=== PATIENT | female | born 1945 | race African-American/Black ===

== ENCOUNTER 2018-07-14 10:55 | Day surgery (SDC) | payer MEDICARE, MEDICAID ==
[~2018-07-14] VITALS: Ht 162.6 cm; Wt 121.4 kg
[2018-07-14 11:48] LABS: ANION GAP 12.3 mmol/L (8-16); CALCIUM 9.5 mg/dL (8.5-10.1); CARBON DIOXIDE 28.7 mmol/L (21.0-32.0)
[2018-07-14 11:54] LABS: HEMATOCRIT 41.7 % (36.0-48.0); HEMOGLOBIN 13.8 g/dL (12-16); MCH 32.1 pg (26.0-34.0); MCHC 33.1 g/dL (31.0-37.0); MEAN PLATELET VOLUME 10.1 fL (7.4-10.4); RBC 4.3 10x6/uL (4.00-5.40); RDW 12.6 % (11.5-14.5); WBC 6.7 10x3/uL (4.8-10.8)
[2018-07-14] MEDS ORDERED: ALDACTONE25 MG PO (12:12)
[2018-07-14] MEDS ORDERED: DONEPEZIL HCL5 MG PO (12:13)
[2018-07-14] MEDS ORDERED: LIPITOR40 MG PO (12:13)
[2018-07-14] MEDS ORDERED: DEXILANT60 MG PO (12:14)
[2018-07-14] MEDS ORDERED: GLUCOPHAGE500 MG PO (12:14)
[2018-07-14] MEDS ORDERED: NEURONTIN600 MG PO (12:15)
[2018-07-14] MEDS ORDERED: ALBUTEROL SULF8.5 GM (12:16)
[2018-07-14] MEDS ORDERED: FLUTICASONE PRO16 GM (12:16)
[2018-07-14] MEDS ORDERED: TRUSOPT 2 % OPT10 ML EACH EYE (12:16)
[2018-07-14] MEDS ORDERED: ULTRAM50 MG (12:17)
[2018-07-14] MEDS ORDERED: LEVOTHYROXINE50 MCG PO (12:18)
[2018-07-14] MEDS ORDERED: MUCINEX600 MG PO (12:18)
[2018-07-14] MEDS ORDERED: NIFEDIPINE 30 MG (12:20)
[2018-07-14 12:31] VITALS: BP 141/55; Ht 162.6 cm; Wt 121.4 kg
--- NOTE | 2018-07-18 10:17 | OP ---
PATIENT NAME: AYANNA ACEVES MEDICAL RECORD: [id number] :45 LOCATION:[facility] ADMISSION DATE: SURGEON: CAMILLE MOY MD DATE OF OPERATION: 07/14/2018 PROCEDURE: Colonoscopy with polypectomy. REFERRING PHYSICIAN: Dr. Nikki Holbrook. INDICATIONS: Ms. Aceves is a delightful 72-year-old woman with a history of colon polyps and diverticulosis coli. Her last colonoscopy was 05/02/2012 (completed to the distal ascending colon secondary to redundancy of the colon), yytd-ds-yoslwfph pandiverticulosis coli and 2 small polyps that were cold biopsied (polyps were hyperplastic in nature). She presents for outpatient surveillance colonoscopy. PREMEDICATIONS: Total IV anesthesia (BMI of 45). INSTRUMENT: Olympus video colonoscope, pediatric. PROCEDURE AND FINDINGS: After receiving informed consent, Ms. Aceves was placed in left lateral decubitus position and sedated per anesthesia. After achieving adequate level of sedation, digital rectal exam was performed that showed no external hemorrhoidal tags, fissures, or fistulas. Normal sphincter tone, no palpable rectal masses. The colonoscope was introduced per rectally and advanced with some difficulty to the cecum. She had a long and redundant colon. The cecum, IC valve, and appendiceal orifice were identified. There was a fair amount of thick liquid stool in the cecum and ascending colon. Multiple lavages were performed. As the colonoscope was withdrawn, careful inspection was made of the ziegler of the colon. Overall mucosa had normal vascular and fold pattern. Diverticula were seen scattered throughout the colon including the ascending, transverse, descending, and sigmoid colon, most numerous in the sigmoid colon. In the sigmoid colon was a 0.5 cm sessile polyp removed with hot biopsy forcep technique. Retroflexion in the rectum showed minimal internal hemorrhoids. A fair prep was present. Ms. Aceves tolerated the procedure well, no immediate complications. ASSESSMENT: 1. Small sigmoid polyp status post polypectomy. 2. Gaja-ud-kgtbrspq pandiverticulosis coli. 3. Mild internal hemorrhoids. RECOMMENDATIONS: 1. Follow up histopathology. 2. Avoid aspirin, nonsteroidal anti-inflammatory drugs, and FRANCO-2 inhibitors for 14 days post polypectomy. 3. High fiber diet. 4. Surveillance colonoscopy in 5 years. TRANSINT:[id number] Voice Confirmation ID: [id number] DOCUMENT ID: [id number] OPERATIVE REPORT [id number] AYANNA ACEVES TERRI MD at 1017 CC: NIKKI HOLBROOK MD [id number] DICTATION DATE: 07/14/18 1326 SLASHER TENDER: 07/14/18 1356 [facility] [place] 07/14/18 [place] [id number] [place] [id number]
== END 2018-07-14 14:20 | disposition home or self-care (01) ==
LOC: D.OPS 10:55
PROVIDERS: Anesthesiology; ATTEND Internal Medicine Gastroenterology
DX: D12.5 Benign neoplasm of sigmoid colon (principal); K57.30 Diverticulosis of large intestine without perforation or abscess without bleeding; K64.8 Other hemorrhoids; Z86.010 Personal history of colon polyps; Z01.812 Encounter for preprocedural laboratory examination

== ENCOUNTER 2019-08-02 14:21 | Inpatient (IN) | payer MEDICARE, MEDICAID ==
[~2019-08-02] VITALS: Ht 162.6 cm; Wt 122.7 kg
[~2019-08-02 14:21] MED LIST: ALBUTEROL SULF8.5 GM; ALDACTONE25 MG PO; DEXILANT60 MG PO; DONEPEZIL HCL5 MG PO; FLUTICASONE PRO16 GM; GLUCOPHAGE500 MG PO; LEVOTHYROXINE50 MCG PO; LIPITOR40 MG PO; MUCINEX600 MG PO; NEURONTIN600 MG PO; NIFEDIPINE 30 MG; TRUSOPT 2 % OPT10 ML EACH EYE; ULTRAM50 MG
[2019-08-02] MEDS ORDERED: ASPIRIN EC81 M1 PO (15:01)
[2019-08-02] MEDS ORDERED: LINZESS72 MCG (15:01)
[2019-08-02] MEDS ORDERED: PEPCID40 MG PO (15:01)
[2019-08-02] MEDS ORDERED: CENTRUM SILVER1 EAC3 (15:02)
[2019-08-02] MEDS ORDERED: FISH OIL 1,0001 CA1 (15:02)
[2019-08-02 15:20] LABS: BILIRUBIN NEGATIVE (NEGATIVE); GLUCOSE NEGATIVE (NEGATIVE); KETONE NEGATIVE (NEGATIVE); NITRITE NEGATIVE (NEGATIVE); UROBILINOGEN NORMAL (NORMAL)
[2019-08-02 15:26] LABS: UDS - AMPHET NEGATIVE QUAL (NEGATIVE); UDS - BARB NEGATIVE QUAL (NEGATIVE); UDS - BENZO NEGATIVE QUAL (NEGATIVE); UDS - COCAINE NEGATIVE QUAL (NEGATIVE); UDS - OPIATE POSITIVE QUAL (NEGATIVE); UDS - PCP NEGATIVE QUAL (NEGATIVE); UDS - THC NEGATIVE QUAL (NEGATIVE)
[2019-08-02 16:02] LABS: BASOPHILS 0.4 % (0-2); EOSINOPHILS 0.8 % (0-7); HEMATOCRIT 41.8 % (36.0-48.0); HEMOGLOBIN 13.2 g/dL (12-16); IMMATURE GRANULOCYTES 0.1 % (0-5); LYMPHOCYTES 39.2 % (15-50); MCH 31.8 pg (26.0-34.0); MCHC 31.6 g/dL (31.0-37.0); MCV 100.7 fL (80.0-100.0); MEAN PLATELET VOLUME 9.4 fL (7.4-10.4); MONOCYTES 12.5 % (2-11); PLATELET COUNT 385 10x3/uL (130-400); RBC 4.15 10x6/uL (4.00-5.40); RDW 12.8 % (11.5-14.5); WBC 7.3 10x3/uL (4.8-10.8)
[2019-08-02 16:10] LABS: CALC OSMOLALITY 276 mosm/kg (275-300); CALCIUM 9.2 mg/dL (8.5-10.1); CARBON DIOXIDE 28.6 mmol/L (21.0-32.0); CHLORIDE - SERUM 102 mmol/L (98-107); GLUCOSE 91 mg/dL (74-106); POTASSIUM - SERUM 4.1 mmol/L (3.5-5.1); SODIUM 139 mmol/L (136-145); UREA NITROGEN 10 mg/dL (7-18); eGFR NON AFRICAN AMERICAN 58 mL/min (90-120)
[2019-08-02 16:24] LABS: ACETAMINOPHEN 0.1 ug/mL (10.0-30.0); ALBUMIN 3.6 g/dL (3.4-5.0); ALKALINE PHOSPHATASE 97 U/L (30-120); ALT (SGPT) 29 U/L (10-68); CKMB 1.4 U/L (0.0-3.6); CREATINE KINASE 175 UL (21-215); MAGNESIUM - SERUM 1.8 mg/dL (1.8-2.4); PROTEIN - SERUM 7.9 g/dL (6.4-8.2); THYROID STIMULATING HORMONE 1.32 uIU/mL (0.36-3.74)
[2019-08-02 16:25] LABS: TROPONIN-I < 0.017 ng/mL (0.000-0.060)
--- NOTE | 2019-08-02 19:00 | NUR ---
REPORT TO TESHA AGOSTO
[2019-08-02 20:00] VITALS: BP 172/70
[2019-08-02] MEDS ORDERED: LINZESS72 MCG PO (23:39)
--- NOTE | 2019-08-03 02:46 | NUR ---
I have reviewed this patient and I concur with the Shift Assessment completed by the Licensed Practical Nurse today this shift.
[2019-08-03 03:15] VITALS: Ht 162.6 cm; Wt 122.7 kg
[2019-08-03 05:32] LABS: BASOPHILS 0.5 % (0-2); EOSINOPHILS 0.2 % (0-7); HEMOGLOBIN 12.8 g/dL (12-16); IMMATURE GRANULOCYTES 0.2 % (0-5); LYMPHOCYTES 20.9 % (15-50); MCH 31.2 pg (26.0-34.0); MCHC 31.2 g/dL (31.0-37.0); MEAN PLATELET VOLUME 9.5 fL (7.4-10.4); MONOCYTES 11.2 % (2-11); PLATELET COUNT 396 10x3/uL (130-400); RDW 12.7 % (11.5-14.5); WBC 5.8 10x3/uL (4.8-10.8)
[2019-08-03 06:32] LABS: ALBUMIN 3.4 g/dL (3.4-5.0); ANION GAP 14.5 mmol/L (8-16); BILIRUBIN - TOTAL 0.49 mg/dL (0.2-1.3); CALCIUM 9.1 mg/dL (8.5-10.1); CARBON DIOXIDE 27.7 mmol/L (21.0-32.0); CREATININE - SERUM 0.9 mg/dL (0.6-1.3); MAGNESIUM - SERUM 1.9 mg/dL (1.8-2.4); PHOSPHOROUS 3.8 mg/dL (2.5-4.9); POTASSIUM - SERUM 4.2 mmol/L (3.5-5.1); PROTEIN - SERUM 7.1 g/dL (6.4-8.2)
--- NOTE | 2019-08-03 07:48 | NUR ---
ASSESSMENT DONE. DENIES NEEDS
[2019-08-03 08:27] VITALS: BP 136/63
[2019-08-03 11:52] VITALS: BP 148/91
--- NOTE | 2019-08-03 16:04 | MORECARE ---
CASE MANAGEMENT DISCHARGE SUMMARY PATIENT: AYANNA ALEX UNIT: [id number] ADM DATE: 08/02/19 AGE: 73 : 45 SEX: F ROOM/BED: D.2121 AUTHOR: PARIS MARINO PHYSICIAN: REFERRING PHYSICIAN: WILL BARRERA MD DATE OF SERVICE: 08/03/19 Discharge Plan Patient Name: [facility]YANNA ALEX [facility] [facility] 1945 Planned Disposition: Psych facility Anticipated Discharge Date: 08/03/19 Discharge Date: Expected LOS: 1 Initial Reviewer: [email or web address] Initial Review Date: 08/03/2019 Generated: 08/03/19 5:04 pm Patient Name: AYANNA ALEX Page 15262 at 1604 All edits/amendments must be made on the electronic document DICTATION DATE: 08/03/191603 MONTESSORI TEACHER: RAMESH 08/03/191603 RPT#: [id number] DC DATE: STATUS: ADM IN [facility] [address] [place] [address] END OF REPORT
--- NOTE | 2019-08-03 16:11 | MORECARE ---
CASE MANAGEMENT DISCHARGE SUMMARY PATIENT: AYANNA ALEX UNIT: [id number] ADM DATE: 08/02/19 AGE: 73 : 45 SEX: F ROOM/BED: D.2121 AUTHOR: PARIS MARINO PHYSICIAN: REFERRING PHYSICIAN: WILL BARRERA MD DATE OF SERVICE: 08/03/19 Discharge Plan Patient Name: [facility]YANNA ALEX [facility] : 1945 Planned Disposition: Psych facility Anticipated Discharge Date: 08/03/19 Discharge Date: Expected LOS: 1 Initial Reviewer: [email or web address] Initial Review Date: 08/03/2019 Generated: 08/03/19 5:11 pm Comments DCP- Discharge Planning Updated by [email or web address]: Elisabeth Bone on 08/03/19 3:[address] Patient Name: AYANNA ALEX Admission Status: ER Accout number: [id number] Admission Date: 08-02-2019 : 1945 Admission Diagnosis:VASCULAR DEMENTIA WITHOUT BEHAVIORAL DISTURBANCE Attending: WILL BARRERA Current LOS: 1 Anticipated DC Date: 08-03-2019 Planned Disposition: Psych facility Primary Insurance: [facility] MEDICARE SOLUTIONS Discharge Planning Comments: CM called daughter to discuss discharge planning/needs. She states her mother lives alone. States we have recently set up home health through [facility]. States they noticed her blood pressure was high and sent her to the hospital. States her mother has become increasingly confused and thinks her daughter is trying to kill her. States she agrees with [facility] discharge disposition. States they will be thinking of possible long-term placement soon. Discharge to [facility], daughter is aware. Account Collector: Elisabeth Bone DCPIA - Discharge Planning Initial Assessment Updated by [email or web address]: Elisabeth Bone on 08/03/19 4:04 pm * Is the patient Alert and Oriented? No * PCP Dr. Esperanza Holbrook * Pharmacy [facility] in [place] * Preadmission Environment Home Alone * ADLs Partial Dependent * Partial ADLs (Assistance needed) Ambulation * Equipment Glucometer Shower Chair Walker * List name and contact numbers for known caregivers / representatives who currently or will assist patient after discharge: Edith Hawthorne - [facility] [place] 2[place] - [phone] * Verbal permission to speak to the caregivers and representatives has been obtained from the patient. Yes * Community resources currently utilized Home Health * Please name any agencies selected above. [facility] * Additional services required to return to the preadmission environment? Yes * Can the patient safely return to the preadmission environment? No * Has this patient been hospitalized within the prior 30 days at any hospital? No Last DP export: 08/03/19 3:04 pm Patient Name: AYANNA ALEX Page 22203 at 1611 All edits/amendments must be made on the electronic document DICTATION DATE: 08/03/191610 TOUR PRODUCTION SUPERVISOR: RAMESH 08/03/191610 RPT#: [id number] DC DATE: STATUS: ADM IN [facility] [address] [place] [address] END OF REPORT
--- NOTE | 2019-08-03 16:59 | NUR ---
REPORT CALLED TO YAQUELIN IN [facility]
--- NOTE | 2019-08-03 17:44 | NUR ---
DC TO [facility] PER WC
--- NOTE | 2019-08-05 19:34 | MORECARE ---
CASE MANAGEMENT DISCHARGE SUMMARY PATIENT: AYANNA ALEX UNIT: [id number] ADM DATE: 08/02/19 AGE: 73 : 45 SEX: F ROOM/BED: D.2121 AUTHOR: PARIS MARINO PHYSICIAN: REFERRING PHYSICIAN: WILL BARRERA MD DATE OF SERVICE: 08/05/19 Discharge Plan Patient Name: AYANNA ALEX Facility: [facility]:[place] : 1945 Planned Disposition: Psych facility Anticipated Discharge Date: 08/03/19 Discharge Date: 08/03/2019 Expected LOS: 1 Initial Reviewer: [email or web address] Initial Review Date: 08/03/2019 Generated: 08/05/19 8:33 pm Comments DCP- Discharge Planning Updated by [email or web address]: Elisabeth Bone on 08/03/19 3:[address] Patient Name: AYANNA ALEX Admission Status: ER Accout number: [id number] Admission Date: 08-02-2019 : 1945 Admission Diagnosis:VASCULAR DEMENTIA WITHOUT BEHAVIORAL DISTURBANCE Attending: WILL ABRRERA Current LOS: 1 Anticipated DC Date: 08-03-2019 Planned Disposition: Psych facility Primary Insurance: [facility] MEDICARE SOLUTIONS Discharge Planning Comments: CM called daughter to discuss discharge planning/needs. She states her mother lives alone. States we have recently set up home health through [facility]. States they noticed her blood pressure was high and sent her to the hospital. States her mother has become increasingly confused and thinks her daughter is trying to kill her. States she agrees with [facility]. States they will be thinking of possible group home placement soon. Discharge to [facility], daughter is aware. Forestry Professor: Elisabeth Bone DCPIA - Discharge Planning Initial Assessment Updated by [email or web address]: Elisabeth Bone on 08/03/19 4:04 pm * Is the patient Alert and Oriented? No * PCP Dr. Esperanza Holbrook * Pharmacy [facility] in [place] * Preadmission Environment Home Alone * ADLs Partial Dependent * Partial ADLs (Assistance needed) Ambulation * Equipment Glucometer Shower Chair Walker * List name and contact numbers for known caregivers / representatives who currently or will assist patient after discharge: Edith Hawthorne - [facility] - [phone] * Verbal permission to speak to the caregivers and representatives has been obtained from the patient. Yes * Community resources currently utilized Home Health * Please name any agencies selected above. [facility] * Additional services required to return to the preadmission environment? Yes * Can the patient safely return to the preadmission environment? No * Has this patient been hospitalized within the prior 30 days at any hospital? No Last DP export: 08/03/19 3:11 pm Patient Name: AYANNA ALEX Page 19998 at 1934 All edits/amendments must be made on the electronic document DICTATION DATE: 08/05/191932 RETAIL CUSTOMER SERVICE REPRESENTATIVE: RAMESH 08/05/191932 RPT#: [id number] DC DATE:08/03/19 STATUS: DIS IN [facility] [address] [place] [address] END OF REPORT
== END 2019-08-03 17:44 | disposition short-term general hospital (02) | DRG 57 ==
LOC: D.ER 14:21 → D.M2 18:49
PROVIDERS: Family Medicine; Family Medicine Adult Medicine; ADMIT Family Medicine; ATTEND Family Medicine
DX: I69.319 Unspecified symptoms and signs involving cognitive functions following cerebral infarction (principal); Z68.42 Body mass index [BMI] 45.0-49.9, adult; F01.51 Vascular dementia, unspecified severity, with behavioral disturbance; I10 Essential (primary) hypertension; E78.5 Hyperlipidemia, unspecified; E11.9 Type 2 diabetes mellitus without complications; E03.9 Hypothyroidism, unspecified; J44.9 Chronic obstructive pulmonary disease, unspecified; J45.909 Unspecified asthma, uncomplicated; K21.9 Gastro-esophageal reflux disease without esophagitis; E66.01 Morbid (severe) obesity due to excess calories; F41.8 Other specified anxiety disorders

== ENCOUNTER 2019-08-03 17:27 | Inpatient (IN) | payer MEDICARE, MEDICAID ==
[~2019-08-03] VITALS: Ht 160 cm; Wt 115.2 kg
[~2019-08-03 17:27] MED LIST changes: +ASPIRIN EC81 M1 PO; +CENTRUM SILVER1 EAC3; +FISH OIL 1,0001 CA1; +LINZESS72 MCG; +LINZESS72 MCG PO; +PEPCID40 MG PO
--- NOTE | 2019-08-03 18:00 | NUR ---
The patient is awake and alert, she is admitted to alf from the medical floor. She is unsteady and uses a rolling walker. She is incontinent of urine. She is confused and has been aggressive at home. She is wearing a mothers ring on her right hand. Spoke to the patient's daughter Edith Hawthorne, she is the POA and she verbalized consent for the patient to be here and she said the patient is a full code.
[2019-08-03 18:52] VITALS: BP 150/68; BMI 43.2
[2019-08-03 19:49] VITALS: BP 174/86
--- NOTE | 2019-08-03 20:17 | NUR ---
PATIENT IS ORIENTED TO SELF BUT HESITATES WITH HER ANSWERS TO PLACE, TIME AND SITUATION IF SHE IS UNSURE. PLEASANT. FOLLOWS DIRECTION. HAS BEEN COMPLIANT WITH MEDS. WILL FOLLOW POC
[2019-08-04 07:45] VITALS: BP 131/63
[2019-08-04 08:30] LABS: CHOL - HDL RATIO 2.6 ratio (2.3-4.1); LDL-HDL RATIO 1.3 ratio (1.5-3.5); THYROID STIMULATING HORMONE 1.12 uIU/mL (0.36-3.74)
[2019-08-04 09:24] VITALS: Ht 160 cm; Wt 115.2 kg
--- NOTE | 2019-08-04 11:09 | NUR ---
The patient is pleasant and calm this am, she is oriented x3. She is watchful of staff, she has not said a lot this am, she has not shown any aggression at this time. She uses her rolling walker to ambulate. Provide prescribed meds. The patient is compliant with meds. Continue POC.
[2019-08-04 19:32] VITALS: BP 179/79
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
[2019-08-05 08:31] VITALS: BP 132/68
--- NOTE | 2019-08-05 12:00 | NUR ---
RECEIVED IN HALLWAY OUTSIDE OF NURSES STATION. CALM AND COOPERATIVE WITH CARE AND ASSESSMENT. WITHDRAWN AND ISOLATES. REDIRECT AND REORIENT NEEDED. EATING LUNCH AT THIS TIME. CONTINUE PLAN OF CARE.
--- NOTE | 2019-08-05 19:17 | NUR ---
RECEIVED IN DAYROOM. SITTING IN A CHAIR WITH PEERS AT HER SIDE. CALM AND COOPERATIVE WITH CARE AND ASSESSMENT. ENCOURAGE TO EXPRESS NEEDS. REDIRECT AND REORIENT NEEDED. CONTINUES TO SIT CALMLY IN DAYROOM. CONTINUE PLAN OF CARE.
[2019-08-05 19:28] VITALS: BP 112/92
[2019-08-06 08:43] VITALS: BP 130/70
--- NOTE | 2019-08-06 12:00 | NUR ---
RECEIVED IN HALLWAY OUTSIDE OF NURSES STATION. CALM AND COOPERATIVE WITH CARE AND ASSESSMENT. NO BEHAVIORS. REDIRECT AND REORIENT NEEDED. EATING LUNCH AT THIS TIME. CONTINUE PLAN OF CARE.
[2019-08-06 19:22] VITALS: BP 160/74
--- NOTE | 2019-08-06 19:39 | NUR ---
RECEIVED IN DAYROOM. SITTING IN A CHAIR WITH PEERS AT HER SIDE. CALM AND COOPERATIVE WITH CARE AND ASSESSMENT. ENCOURAGE TO EXPRESS NEEDS. REDIRECT AND REORIENT NEEDED. COONTINUES TO SIT CALMLY IN DAYROOM. CONTINUE PLAN OF CARE.
[2019-08-07 07:12] LABS: RAPID PLASMA REAGIN Non Reactive (Non Reactive)
[2019-08-07 07:47] VITALS: BP 174/77
--- NOTE | 2019-08-07 08:30 | NUR ---
RECEIVED IN HALLWAY OUTSIDE OF NURSES STATION. CALM AND COOPERATIVE WITH CARE AND ASSESSMENT. NO BEHAVIORS. REDIRECT AND REORIENT NEEDED. EATING BREAKFAST AT THIS TIME. CONTINUE PLAN OF CARE.
--- NOTE | 2019-08-07 11:32 | PN ---
PATIENT:AYANNA ALEX MEDICAL RECORD: [id number] LOCATION:[facility] ADMISSION DATE: 08/03/19 PROGRESS NOTE DATE OF SERVICE: 08/06/2019 SUBJECTIVE: The patient's case was discussed with staff. She has no new complaint. OBJECTIVE: The patient is only partially oriented. She is withdrawn, very frightened and anxious. She is convinced her daughter is trying to kill her. ASSESSMENT: 1. Vascular dementia. 2. Major depression with psychosis. PLAN: The patient will be given antipsychotic medication along with an antidepressant. PROGNOSIS: Guarded. TRANSINT:[id number] Voice Confirmation ID: [id number] DOCUMENT ID: [id number] TERRANCE MORTENSEN MD at 1132 CC: [id number] DICTATION DATE: 08/06/19 1515 HOUSING GRANT ANALYST: 08/06/19 194 ADM IN [facility] [address] [place] [id number]
--- NOTE | 2019-08-07 13:40 | NUR ---
Nutrition Follow-up: Overall good appetite/PO intake. Diet: Diabetic PO intake: 80% avg x 6 meals Wt: 249.2# (08/04); 251# (08/02) No BM recorded Labs noted: Glu 109 Meds noted: Pepcid, Fish Oil, vitamin D, Glucophage -Encourage PO intake and honor food preferences within diet restrictions. -Monitor wt. -RD following.
--- NOTE | 2019-08-07 19:27 | NUR ---
RECEIVED IN DAYROOM. SITTING IN A CHAIR WITH PEERS AT HER SIDE. CALM AND COOPERATIVE WITH CARE AND ASSESSMENT. ENCOURAGE TO EXPRESS NEEDS. CONTINUES TO SIT QUIETLY IN DAYROOM. CONTINUE PLAN OF CARE.
[2019-08-07 19:43] VITALS: BP 146/65
[2019-08-08 08:15] VITALS: BP 146/68
--- NOTE | 2019-08-08 10:17 | PN ---
PATIENT:AYANNA ALEX MEDICAL RECORD: [id number] LOCATION:[facility] ADMISSION DATE: 08/03/19 PROGRESS NOTE DATE OF SERVICE: 08/07/2019 SUBJECTIVE: The patient's case was discussed with staff. She has no new complaint. OBJECTIVE: The patient slept well last night and ate reasonably well yesterday. She denies any intent to harm herself or others. She generally is tolerating her medicines well. ASSESSMENT: 1. Vascular dementia. 2. Major depression with psychosis. PLAN: Current medicines have been reviewed and will be maintained. Long-term prognosis is guarded. Brief supportive and educational interventions were made. TRANSINT:[id number] Voice Confirmation ID: [id number] DOCUMENT ID: [id number] TERRANCE MORTENSEN MD at 1017 CC: [id number] DICTATION DATE: 08/07/19 1220 DIRECTOR DRUG SAFETY: 08/07/19 1832 ADM IN [facility] [address] [place] [id number]
--- NOTE | 2019-08-08 10:31 | NUR ---
The patient is calm and pleasant. She was skeptical about her medications this am, but she slowly took them. She is watchful this am and she is mouthing as if she may be attending to her voices. She is quiet. Her feet and ankles are edematous this am and she has them elevated this am. Provide prescribed meds. The patient is compliant with meds. Continue POC.
[2019-08-08 20:30] VITALS: BP 163/72
--- NOTE | 2019-08-08 21:18 | NUR ---
PATIENT IS QUIET, PLEASANT, GOOD AFFECT, CAN MAKE NEEDS KNOWN, COMPLIANT WITH MEDS, WILL FOLLOW POC
[2019-08-09 08:16] VITALS: BP 141/56
--- NOTE | 2019-08-09 08:27 | PN ---
PATIENT:AYANNA ALEX MEDICAL RECORD: [id number] LOCATION:[facility] ADMISSION DATE: 08/03/19 PROGRESS NOTE DATE OF SERVICE: 08/08/2019 SUBJECTIVE: The patient's case was discussed with staff. She has no new complaint. OBJECTIVE: The patient is much calmer. She is more redirectable. She continues to have delusions that others are trying to harm her, particularly her daughter, Mesha. Mesha is the caregiver who comes to the house every day. ASSESSMENT: 1. Vascular dementia. 2. Major depression with psychotic features. PLAN: The patient's Effexor will be increased slightly. Her long-term prognosis is guarded. Both supportive and educational interventions were made. TRANSINT:[id number] Voice Confirmation ID: [id number] DOCUMENT ID: [id number] TERRANCE MORTENSEN MD at 0827 CC: [id number] DICTATION DATE: 08/08/19 1434 FUGITIVE DETECTIVE: 08/08/19 1703 ADM IN [place] [id number] [place] [id number]
[2019-08-09 08:59] VITALS: BP 141/56
--- NOTE | 2019-08-09 11:18 | NUR ---
The patient is awake and alert and she is pleasant she is cooperative, she has poor insight into her situation. She ambulates with her walker. She has not made any remarks about paranoia or hallucinations. Provide prescribed meds. The patient is compliant with meds. Continue POC.
[2019-08-09 20:25] VITALS: BP 161/67
--- NOTE | 2019-08-09 21:51 | NUR ---
B)RECEIVED PATIENT STANDING IN THE DINING ROOM AND RELATED ANOTHER PATIENT NEEDED HELP IN THE BATHROOM. ORIENTED TO SELF AND HOSPITAL HOWEVER RELATED TOWN IS [place] AND THEN CORRECTED HERSELF. SMILING TODAY AND MORE INTERACTIVE WITH NURSE. RELATES REASON FOR HOSPITALIZATION IS "NERVOUS AND BLOOD PRESSURE WAS UP." I)ADMINISTER MEDS AND MONITOR COMPLIANCE. REORIENT NEEDED. R)MED COMPLIANT. REORIENTS HOWEVER IS FORGETFUL AND REQUIRES REORIENTATION. P)CONTINUE POC AND PROVIDE SAFE ENVIRONMENT.
[2019-08-10 09:39] VITALS: BP 156/75
--- NOTE | 2019-08-10 09:52 | NUR ---
The patient is awake and alert, she is pleasant, oriented times 3. She is ambulating with her walker. She has not made any mention of voices and she is not attending this am. Provide prescribed meds. The patient is compliant with meds. Continue POC.
--- NOTE | 2019-08-10 13:26 | NUR ---
Nutrition Follow-up: PO intake seems to fluctuate. Ate 15-100% of meals yesterday. Diet: Diabetic PO intake: 56% avg x 9 meals Wt: 249.2# (08/04); 251# (08/02) Last BM: 08/08 Labs noted: Glu 92 Meds noted: Pepcid, Fish Oil, vitamin D, Glucophage -Encourage PO intake and honor food preferences within diet restrictions. -Offer Glucerna with meals. -Monitor wt. -RD following.
[2019-08-10 20:23] VITALS: BP 138/97
--- NOTE | 2019-08-10 21:33 | NUR ---
B.) PT IS ALERT AND ORIENTED TO SELF AND SITUATION AT TIMES. SHE IS CALM, COOPERATIVE AND PLEASANT WITH STAFF. SHE HAS AN APPROPRIATE AFFECT. I.) PROVIDED PM MEDICATIONS PRESCRIBED. REDIRECT NEEDED. R.) COMPLIANT WITH ALL MEDICATIONS. EASY TO REDIRECT. P.) WILL CONTINUE TO MONITOR.
[2019-08-11 08:17] VITALS: BP 134/69
--- NOTE | 2019-08-11 11:28 | NUR ---
The patient is awake and alert, her affect is reactive. She is calm and she has not made anymore statements about her daughter trying to kill her, she has not made any mention of paranoia or hallucinations. Provide prescribed meds. The patient is compliant with meds. The patient ambulates with her rolling walker. Continue POC.
[2019-08-11 20:11] VITALS: BP 126/66
--- NOTE | 2019-08-11 20:51 | NUR ---
B.) PT IS ALERT AND ORIENTED TO SELF, PLACE AND SITUATION. SHE IS A LITTLE WITHDRAWN. SHE IS QUIET AND COOPERATIVE WITH STAFF. SHE USES A ROLLER WALKER TO ASSIST WITH AMBULATION AND SHE IS ABLE TO MAKE HER NEEDS KNOWN. I.) PROVIDED PM MEDICATIONS PRESCRIBED. REDIRECT NEEDED. R.) COMPLIANT WITH ALL MEDICATIONS. EASY TO REDIRECT. P.) WILL CONTINUE TO MONITOR.
[2019-08-12 07:41] VITALS: BP 153/65
--- NOTE | 2019-08-12 11:15 | NUR ---
The patient is awake and alert. She is pleasant and calm she has not shown any paranoia today. She is quiet and stays to herself, but her children say she only like gospel music and movies. Provide prescribed meds. The patient is compliant with meds. She uses a rolling walker. Her bilateral ankles are edematous and she has them elevated in a recliner. Continue POC.
--- NOTE | 2019-08-12 19:07 | NUR ---
RECEIVED IN DAYROOM. SITTING IN A CHAIR WITH PEERS AT HER SIDE. CALM AND COOPERATIVE WITH CARE AND ASSESSMENT. ENCOURAGE TO EXPRESS NEEDS. REDIRECT AND REORIENT NEEDED, CONINUES TO SIT QUIETLY IN DAYROOM. CONTINUE PLAN OF CARE.
[2019-08-12 20:00] VITALS: BP 149/54
[2019-08-13 08:05] VITALS: BP 164/68
--- NOTE | 2019-08-13 12:00 | NUR ---
RECEIVED IN HALLWAY OUTSIDE OF NURSES STATION. CALM AND COOPERATIVE WITH CARE AND ASSESSMENT. NO BEHAVIORS. REDIRECT AND REORIENT NEEDED. EATING AT THIS TIME. CONTINUE PLAN OF CARE.
--- NOTE | 2019-08-13 13:22 | PN ---
PATIENT:AYANNA ALEX MEDICAL RECORD: [id number] LOCATION:[facility] ADMISSION DATE: 08/03/19 PROGRESS NOTE DATE OF SERVICE: 08/09/2019 SUBJECTIVE: The patient's case was discussed with staff. She has no new complaint. OBJECTIVE: The patient is significantly calmer. She has limited insight about her situation and denies that she would actively seek to harm herself. She generally is tolerating her medicines well. ASSESSMENT: 1. Vascular dementia. 2. Major depression with psychosis. PLAN: The patient will be treated with a higher dose of Effexor. She will be monitored for clinical changes associated with its use. Her long-term prognosis is guarded. TRANSINT:[id number] Voice Confirmation ID: [id number] DOCUMENT ID: [id number] TERRANCE MORTENSEN MD at 1322 CC: [id number] DICTATION DATE: 08/09/19 1530 CONTAINER SHOP WELDER: 08/09/19 1739 ADM IN [place] [id number] [place] [id number]
[2019-08-13] MEDS ORDERED: HYDRALAZINE HCL50 MG PO (15:28)
[2019-08-13] MEDS ORDERED: EFFEXOR37.5 MG PO (15:28)
[2019-08-13] MEDS ORDERED: PERPHENAZINE2 MG PO (15:28)
[2019-08-13] MEDS ORDERED: PEPCID PO (15:29)
[2019-08-13] MEDS ORDERED: LINZESS145 MCG PO (15:29)
[2019-08-13] MEDS ORDERED: VITAMIN D5000 UNI3 PO (15:30)
--- NOTE | 2019-08-13 20:48 | NUR ---
RECEIVED IN DAYROOM. SITTING IN A CHAIR WITH PEERS AT HER SIDE. SOCAIL AT TIMES. CALM AND COOPERATIVE WITH CARE AND ASSESSMENT. ENCOURAGE TO EXPRESS NEEDS. RESTING IN BED WITH EYES CLOSED AT THIS TIME. CONTINUE PLAN OF CARE.
[2019-08-13 20:51] VITALS: BP 156/76
[2019-08-14 08:41] VITALS: BP 162/72
--- NOTE | 2019-08-14 09:38 | PN ---
PATIENT:AYANNA ALEX MEDICAL RECORD: [id number] LOCATION:[facility] ADMISSION DATE: 08/03/19 PROGRESS NOTE DATE OF SERVICE: 08/13/2019 SUBJECTIVE: The patient's case was discussed with staff. She has no new complaint. OBJECTIVE: The patient is withdrawn and blunted, but not psychotic. She also has no thoughts of harming herself or others. She is generally tolerating her medications well. ASSESSMENT: 1. Vascular dementia. 2. Major depression. PLAN: The patient will be transitioned out of the hospital tomorrow. Her long-term prognosis is guarded. TRANSINT:[id number] Voice Confirmation ID: [id number] DOCUMENT ID: [id number] TERRANCE MORTENSEN MD at 0938 CC: [id number] DICTATION DATE: 08/13/19 1525 ADDING MACHINE MECHANIC: 08/13/19 1559 ADM IN [facility] [address] [place] [address]
--- NOTE | 2019-08-14 12:00 | NUR ---
PATIENT DISCHARGED HOME. PAPERWORK FAXED TO DOCTOR [facility]ARE[facility]S OFFICE AND MIRNA AT HOME. HARD COPY GOT LEFT. DAUGHTER CALLED AND WILL COME BACK TO RADIO RIGGER DISCHARGE PACKET. MEDS SENT ELECTRONICALLY TO PHARMACY.
--- NOTE | 2019-08-16 14:44 | DS ---
PATIENT:AYANNA ALEX :45 MEDICAL RECORD: [id number] DISCHARGE SUMMARY ADMISSION DATE: 08/03/19 DISCHARGE DATE: 08/14/19 IDENTIFYING DATA: The patient is 75 years old and she was admitted to the hospital on a voluntary basis. CHIEF COMPLAINT: "My daughter is trying to kill me." HISTORY OF PRESENT ILLNESS: The patient is delusional. She believes her daughter is trying to kill her. The evidence for this is not consistent with that. The patient is quite confused that the daughter that she thinks is trying to kill her brought her to the Emergency Room to get some help for her. HOSPITAL COURSE: The patient was initially admitted to the medical floor. She was confused and agitated on the medical floor. She was subsequently transferred to psychiatric wing for evaluation and treatment. HOSPITAL COURSE: The patient was admitted to the hospital and fully evaluated from both a medical, psychological, and social standpoint. She was found to have a dementing illness as well as a depressive condition. She was treated with both mood stabilizing and antidepressant medication. She was given antipsychotic medication. She showed improvement and was subsequently transitioned home with her daughter. The patient no longer believed the daughter was trying to kill her. DISCHARGE DIAGNOSES: AXIS I: Advanced major vascular neurocognitive disorder. Major depressive episode, severe, recurrent with psychotic features. AXIS II: None. AXIS III: Status post stroke, diabetes, hypothyroidism, asthma, COPD, and arthritis. AXIS IV: Moderate. AXIS V: Global assessment of functioning is 35. PLAN: At the time of discharge, the patient was in good behavioral control and no longer had the delusion that her daughter who cares for her was trying to kill her. She should be maintained on current medicines with follow up with her primary care physician. Her long-term prognosis is guarded. TRANSINT:[id number] Voice Confirmation ID: [id number] DOCUMENT ID: [id number] TERRANCE MORTENSEN MD at 1444 CC: [id number] DICTATION DATE: 08/15/19 163 MANAGER DATA WAREHOUSE: 08/16/19 0032 DIS IN 08/14/19 [id number] [place] [address]
== END 2019-08-14 11:30 | disposition home health service (06) | DRG 57 ==
LOC: D.REHAB 17:27 → D.PSYCH 18:39
PROVIDERS: ADMIT Psychiatry & Neurology Psychiatry; ATTEND Psychiatry & Neurology Psychiatry
DX: I69.319 Unspecified symptoms and signs involving cognitive functions following cerebral infarction (principal); F01.51 Vascular dementia, unspecified severity, with behavioral disturbance; F32.3 Major depressive disorder, single episode, severe with psychotic features; Z68.42 Body mass index [BMI] 45.0-49.9, adult; F41.8 Other specified anxiety disorders; H40.9 Unspecified glaucoma; I10 Essential (primary) hypertension; E11.42 Type 2 diabetes mellitus with diabetic polyneuropathy; E78.5 Hyperlipidemia, unspecified; J44.9 Chronic obstructive pulmonary disease, unspecified; E03.8 Other specified hypothyroidism; E06.3 Autoimmune thyroiditis; J45.909 Unspecified asthma, uncomplicated; K21.9 Gastro-esophageal reflux disease without esophagitis; E66.01 Morbid (severe) obesity due to excess calories; E55.9 Vitamin D deficiency, unspecified; K59.00 Constipation, unspecified

== ENCOUNTER 2019-10-03 20:13 | Inpatient (IN) | payer MEDICARE, MEDICAID ==
[~2019-10-03 20:13] MED LIST changes: +EFFEXOR37.5 MG PO; +HYDRALAZINE HCL50 MG PO; +LINZESS145 MCG PO; +PEPCID PO; +PERPHENAZINE2 MG PO; +VITAMIN D5000 UNI3 PO
[2019-10-03 20:40] VITALS: BP 132/67
[2019-10-03 21:15] LABS: BASOPHILS 0.4 % (0-2); EOSINOPHILS 0.4 % (0-7); HEMATOCRIT 39.9 % (36.0-48.0); HEMOGLOBIN 12.6 g/dL (12-16); IMMATURE GRANULOCYTES 0.2 % (0-5); LYMPHOCYTES 15.9 % (15-50); MCH 31.1 pg (26.0-34.0); MCHC 31.6 g/dL (31.0-37.0); MCV 98.5 fL (80.0-100.0); MEAN PLATELET VOLUME 9.6 fL (7.4-10.4); MONOCYTES 22.4 % (2-11); NEUTROPHILS 60.7 % (40-80); RBC 4.05 10x6/uL (4.00-5.40); RDW 13.2 % (11.5-14.5); WBC 5.7 10x3/uL (4.8-10.8)
[2019-10-03 21:16] LABS: PLATELET COUNT 302 10x3/uL (130-400)
[2019-10-03 21:25] LABS: ANION GAP 14.3 mmol/L (8-16); CALCIUM 9.2 mg/dL (8.5-10.1); CARBON DIOXIDE 25.6 mmol/L (21.0-32.0); CREATININE - SERUM 1.1 mg/dL (0.6-1.3); POTASSIUM - SERUM 3.9 mmol/L (3.5-5.1)
[2019-10-03 21:30] VITALS: BP 138/65
[2019-10-03 21:40] LABS: ALBUMIN 3.5 g/dL (3.4-5.0); BILIRUBIN - TOTAL 0.5 mg/dL (0.2-1.3); MAGNESIUM - SERUM 1.5 mg/dL (1.8-2.4); PROTEIN - SERUM 7.5 g/dL (6.4-8.2); THYROID STIMULATING HORMONE 2.16 uIU/mL (0.36-3.74)
[2019-10-03 21:45] LABS: BILIRUBIN NEGATIVE (NEGATIVE); GLUCOSE NEGATIVE (NEGATIVE); KETONE NEGATIVE (NEGATIVE); NITRITE NEGATIVE (NEGATIVE); UROBILINOGEN NORMAL (NORMAL)
--- NOTE | 2019-10-03 21:53 | NUR ---
IN AND OUT CATH. STERILE FIELD MAINTAINED. PT TOLERATED WELL. RESTING IN ROOM RISE AND FALL OF CHEST NOTED.
[2019-10-03 21:56] LABS: UDS - AMPHET NEGATIVE QUAL (NEGATIVE); UDS - BARB NEGATIVE QUAL (NEGATIVE); UDS - BENZO NEGATIVE QUAL (NEGATIVE); UDS - COCAINE NEGATIVE QUAL (NEGATIVE); UDS - OPIATE NEGATIVE QUAL (NEGATIVE); UDS - PCP NEGATIVE QUAL (NEGATIVE); UDS - THC NEGATIVE QUAL (NEGATIVE)
[2019-10-03 22:15] VITALS: BP 132/62
[2019-10-03 23:54] VITALS: BP 150/69
--- NOTE | 2019-10-04 00:21 | NUR ---
PT ADMIT TO [facility] FROM [facility]. SHE CAME TO THE HOSPITAL AFTER REPORTS FROM THE FAMILY OF AGGRESSION WITH CARE. SHE IS A FULL CODE AND HER CODE NUMBER IS [id number]. SHE IS NORMALLY ABLE TO AMBULATE WITH AN UNSTEADY GAIT. SHE RECEIVED 5 MG HALDOL AND 2 MG OF ATIVAN BEFORE BEING ADMITTED. SHE IS RESTING CALMLY IN BED AT THIS TIME. WILL CONTINUE TO MONITOR.
[2019-10-04 00:50] VITALS: BP 150/69; BMI 43.9
--- NOTE | 2019-10-04 00:55 | NUR ---
TASHA MASTERSON IS POA VERBALLY CONSENTED TO TREATMENT AT 2320 ON 10/03/19. SHE RELATED THE SHE DIDNT HAVE HER MEDICATION LIST AVAILABLE BUT WILL CALL IN THE MORNING WITH IT. SHE STATED THAT SHE IS A TYPE 2 DIABETIC. PT IS RESTING CALMLY IN BED WITH EYES CLOSED. WILL CONTINUE TO MONITOR.
[2019-10-04 08:23] LABS: CHOL - HDL RATIO 2.3 ratio (2.3-4.1); THYROID STIMULATING HORMONE 0.74 uIU/mL (0.36-3.74)
[2019-10-04 08:39] VITALS: Wt 110.7 kg
[2019-10-04 10:31] VITALS: BP 156/58
--- NOTE | 2019-10-04 16:57 | NUR ---
PT SITTING IN CHAIR AT THIS TIME. PT IS QUIET AND WATCHING STAFF. PT IS FRIENDLY AND SPEAKS WITH STAFF WHEN SPOKEN TO. PT IS COMPLIANT WITH VITALS AND ASSESSMENTS. PT DOES AMBULATE AND CAN MAKE NEEDS KNOWN. WILL CONT TO MONITOR AND ASSESS FOR BEHAVIORS.
--- NOTE | 2019-10-04 19:53 | NUR ---
RECEIVED PATIENT IN DINING ROOM, SITTING PLEASANTLY WITH A SMILE ON HER FACE, NO AGGRESSION NOTED AT ALL. SOME CONFUSION, EATING HER SNACK. NO DISTRESS. WILL FOLLOW POC
[2019-10-04 20:04] VITALS: BP 164/75
[2019-10-05 07:14] LABS: RAPID PLASMA REAGIN Non Reactive (Non Reactive)
[2019-10-05 09:55] VITALS: BP 147/79
[2019-10-05 20:00] VITALS: BP 154/64
--- NOTE | 2019-10-06 01:39 | NUR ---
B) Patient is alert and oriented to self, calm and watching TV in the day room, I) Administered scheduled medications as ordered, monitored for safety R) Medication compliant, pleasant and friendly toward staff, P) Continue plan of care.
[2019-10-06 08:24] VITALS: BP 144/96
--- NOTE | 2019-10-06 15:53 | NUR ---
The patient is pleasant, she has poor insight into her situation. She is oriented to her name and she is calm, she has not shown any aggression and she has not shown any hallucinations. Provide prescribed meds. The patient is compliant with meds. The patient ambulates independently, but she has bilateral edema to her lower legs and feet. Continue POC.
[2019-10-06 20:02] VITALS: BP 150/67
--- NOTE | 2019-10-06 20:32 | NUR ---
PATIENT HAS TEMT OF 100.6, NO OTHER SYMPTOMS, PATIENT STATED SHE FEEL FINE, CALLED DR NOLAND AND RECIEVED ORDER FOR TYLENOL 650 MG PO ONCE, WILL CONTINUE TO MONITOR.
--- NOTE | 2019-10-06 21:19 | NUR ---
B) Patient is alert and oriented to person and place, calm and cooperative, I) Administered scheduled medications, will monitor for fever R) Mediation compliant, ADL independant, pleasant toward staff, P) Continue plan of care.
--- NOTE | 2019-10-06 23:12 | NUR ---
TEMPERTURE RECHECKED 98.8 ORAL. PATIENT RESTING QUIETLY IN BED.
[2019-10-07 13:48] VITALS: BP 144/73
--- NOTE | 2019-10-07 14:49 | NUR ---
ORIENTED TO SELF.COMPLIANT WITH STAFF AND MEDS.AMBULATES.CONTINENT OF BOWEL AND BLADDER.WILL CONTINUE WITH CURRENT PLAN OF CARE,MONITOR FOR CHANGES AND SAFETY.
--- NOTE | 2019-10-07 19:10 | NUR ---
PT FEVER OF 100.4. INFORMED DR. NOLAND SHE STATED TO GET A COVID 19 TEST. ACCORDING TO [place] PT HAS TO HAVE TWO NEW ONSET OF SYMPTOMS IN ORDER TO QUALIFY FOR TEST. SHE HAS A FEVER BUT DENIES NEW ONSET OF COUGH, HEADACHE, TASTE, SENSE OF SMELL, CHILLS OR MUSCLE PAIN. PT DOESNT MEET QUALIFICATIONS AND CANNOT BE TESTED AT THIS TIME.
--- NOTE | 2019-10-07 19:18 | PSY ---
PATIENT NAME:AYANNA ALEX MEDICAL RECORD: [id number] : 45 LOCATION:[facility] ADMISSION DATE: 10/03/19 ACCOUNT: [id number] PSYCHIATRIC EVALUATION DATE OF EVALUATION: 10/04/19 IDENTIFYING DATA: The patient is 73 years old and she is admitted to the hospital on a voluntary basis. CHIEF COMPLAINT: Aggression. HISTORY OF PRESENT ILLNESS: The patient is known to me from previous clinical contact. She has a history of dementia and was recently hospitalized here. It was recommended that the family place her in a correction and that she have 97-caff-q-day supervision. The daughter wanted to try her at home and at this time, the daughter is bringing her back saying that she is combative with her and she is unable to care for her. The patient has no real recollection of this. She says everything is fine at home. There have been no conflicts with her daughter. She is calm and cooperative, right now, but she did receive Haldol in the Emergency Department because she was so agitated. PAST MEDICAL HISTORY: Significant for stroke, hypertension, hyperlipidemia, diabetes, hypothyroidism, COPD, asthma, gastroesophageal reflux disease and, morbid obesity. PAST PSYCHIATRIC HISTORY: Significant for an established diagnosis of dementia and 1 previous psychiatric hospitalization. That was here. FAMILY HISTORY: Unknown. ALLERGIES: LISINOPRIL. CURRENT MEDICATIONS: Please see the admissions MAR. SOCIAL HISTORY: The patient is . She was for many years. She has adult children involved with her care. She has no history of drug or alcohol abuse and generally functioned well socially and occupationally. MENTAL STATUS EXAMINATION: The patient is awake, alert and oriented to person and place, but not to time or situation. Her mood is flat. Her affect is constricted. Thought processes are circumstantial. Memory, concentration, and abstraction abilities are at least moderately impaired and she denies any intent to harm herself or others as well as overt psychotic symptoms. She has no known history of sexual trauma. ASSETS: Supportive family members. LIABILITIES: Limited insight. DIAGNOSTIC IMPRESSION: AXIS I: Major neurovascular cognitive disorder. AXIS II: None. AXIS III: Status post stroke, diabetes, hypothyroidism, asthma, COPD, arthritis. AXIS IV: Moderate stressors. AXIS V: Global assessment of functioning is 30. PLAN: At this time, the patient is admitted to the hospital for comprehensive medical, psychological, and social evaluation. She will be treated with both memory enhancing and mood stabilizing medications as deemed appropriate. Her long-term prognosis is guarded and I will recommend strongly to the family that they placed her in an environment where she has 39-gqpj-h-day supervision and a high degree of structure. TRANSINT:[id number] Voice Confirmation ID: [id number] DOCUMENT ID: [id number] TERRANCE MORTENSEN MD at 9088 CC: [id number] DICTATION DATE: 10/04/19 1354 WIRE WEB WORKER: 10/04/19 1406 ADM IN [facility] [address] [id number]
--- NOTE | 2019-10-07 19:47 | NUR ---
RECEIVED IN DAYROOM. SITTING IN A CHAIR WITH PEERS AT HER SIDE. SOCIAL AT TIMES. CALM AND COOPERATIVE WITH CARE AND ASSESSMENT. NO SIGNS OF AGGRESSION. REDIRECT AND REORIENT NEEDED. PATIENT IN BEDROOM AT THIS TIME. FEVER OF 100.4. DR NOLAND CALLED. NEW ORDER FOR COVID-19 TEST RECEIVED. RESTING EYES CLOSED IN HER ROOM AT THIS TIME. CONTINUE PLAN OF CARE.
[2019-10-07 20:24] VITALS: BP 141/56
[2019-10-08 08:41] VITALS: BP 133/66
--- NOTE | 2019-10-08 10:56 | NUR ---
Nutrition Follow-up: Diet: Diabetic PO intake: ~82% average x last 12 meals Last BM: 10/05/19. WT: 244.8# (10/07/19); Admit WT: 247# (10/04/19) Meds noted: linzess, metformin. Labs noted: POC Glu 100(WNL) Recommend continue current diet. RD following.
--- NOTE | 2019-10-08 13:58 | NUR ---
PT IS AWAKE AND ALERT TO PERSON. CALM AND COOPERATIVE WITH ASSESSMENT AT THIS TIME. REDIRECT AND REORIENT NEEDED. TEMP 99.7 REPORTED AND COVID 19 TEST REQUESTED. THIS NURSE WAS INFORMED PT DID NOT MEET CRITERIA FOR TESTING AT THIS TIME. PT C/O BACK PAIN. PRN TRAMADOL PROVIDED PER PT REQUEST. NO AGGRESSION NOTED. PRESCRIBED MEDS PROVIDED ORDERED. MED COMPLIANT. FALL PRECAUTIONS IN PLACE. WILL CPOC.
[2019-10-08 16:03] LABS: BASOPHILS 0.2 % (0-2); EOSINOPHILS 0 % (0-7); HEMATOCRIT 38.2 % (36.0-48.0); HEMOGLOBIN 11.9 g/dL (12-16); IMMATURE GRANULOCYTES 0.2 % (0-5); LYMPHOCYTES 23.2 % (15-50); MCH 31.1 pg (26.0-34.0); MCHC 31.2 g/dL (31.0-37.0); MCV 99.7 fL (80.0-100.0); MEAN PLATELET VOLUME 9.8 fL (7.4-10.4); MONOCYTES 17.5 % (2-11); NEUTROPHILS 58.9 % (40-80); RBC 3.83 10x6/uL (4.00-5.40); RDW 13.6 % (11.5-14.5); WBC 4.9 10x3/uL (4.8-10.8)
[2019-10-08 16:08] LABS: PLATELET COUNT 228 10x3/uL (130-400)
[2019-10-08 20:10] VITALS: BP 142/33; BP 153/62
--- NOTE | 2019-10-08 20:55 | NUR ---
RECEIVED IN DAYROOM. SITTING IN A CHAIR WITH PEERS AT HER SIDE. SOCIAL. CALM AND COOPERATIVE WITH CARE AND ASSESSMENT. NO SIGNS OF AGGRESSION. REDIRECT AND REORIENT NEEDED. CONTINUES TO SIT CALMLY IN DAYROOM. CONTINUE PLAN OF CARE.
[2019-10-09 11:40] VITALS: BP 119/68
--- NOTE | 2019-10-09 11:57 | NUR ---
RECEIVED IN HALLWAY OUTSIDE OF NURSES STATION. CALM AND COOPERATIVE WITH CARE AND ASSESSMENT. NO AGGRESSIVE BEHAVIOR. REDIRECT AND REORIENT NEEDED. EATING AT THIS TIME. CONTINUE PLAN OF CARE.
[2019-10-09 20:53] VITALS: BP 149/59
--- NOTE | 2019-10-09 22:16 | NUR ---
RECEIVED IN DAYROOM. SITTING IN A CHAIR WITH PEERS AT HER SIDE. SOCIAL. CALM AND COOPERATIVE WITH CARE AND ASSESSMENT. NO SIGNS OF AGGRESSION. REDIRECT AND REORIENT NEEDED. RESTING IN BED WITH EYES CLOSED AT THIS TIME. CONTINUE PLAN OF CAER.
[2019-10-10 09:19] VITALS: BP 116/91
--- NOTE | 2019-10-10 13:54 | NUR ---
Nutrition Follow-up: Diet: Diabetic PO intake: ~72% average x last 9 meals Last BM: 10/05/19. WT: 244.8# (10/07/19); Admit Wt: 247# (10/04/19) Meds noted: linzess, metformin. Labs noted: POC Glu 100(WNL) Recommend continue current diet. RD following.
--- NOTE | 2019-10-10 14:42 | NUR ---
PT IS SITTING IN DAYROOM WITH PEERS AT THIS TIME. CALM AND COOPERATIVE WITH ASSESSMENT. NO BEHAVIORS NOTED. PRESCRIBED MEDS PROVIDED ORDERED. MED COMPLIANT. REDIRECT AND REORIENT NEEDED. WILL CPOC.
[2019-10-10 20:03] VITALS: BP 133/63
--- NOTE | 2019-10-11 00:23 | NUR ---
B.) PT IS ALERT AND ORIENTED X4. SHE IS CALM AND COOPERATIVE AND ABLE TO VOICE NEEDS AND WANTS. SHE IS ABLE TO AMBULATE ON HER OWN WITHOUT ASSIST. SHE IS SOCIAL AND INTERACTIVE WITH PEERS AND STAFF. I.) PROVIDED PM MEDICATIONS PRESCRIBED. REDIRECT NEEDED. R.) COMPLIANT WITH ALL MEDICATIONS. EASY TO REDIRECT. P.) WILL CONTINUE TO MONITOR.
--- NOTE | 2019-10-11 06:05 | NUR ---
INFORMED DAUGHTER TASHA MASTERSON THAT HER MOTHER WOULD BE DISCHARGING TODAY. I WAS UNSURE OF THE TIME AND INFORMED HER THAT I WOULD HAVE DAYSHIFT CONTACT HER WITH A TIME FOR DISCHARGE.
[2019-10-11 09:09] VITALS: BP 124/59
--- NOTE | 2019-10-11 10:19 | NUR ---
SW SPOKE WITH PT'S DTR, TASHA, TO DISCUSS DISCHARGE TODAY. PT WILL BE PICKED UP BETWEEN 2 AND 3PM. [facility] SET UP FOLLOW UP APPOINTMENTS WITH DR CAREY 10/14 AT 1030 AM FOR A VIDEO CONFERENCE CALL AND CALLED MIRNA AT HOME TO ALERT PT DISCHARGING TODAY. DISCHARGE PAPERWORK WAS SENT TO BOTH FACILITIES FOR FOLLOW UP CARE.
--- NOTE | 2019-10-11 11:20 | NUR ---
PT SITTING IN CHAIR. NO ACUTE DISTRESS NOTED. CONFUSION NOTED. PT IS ALERT TO PLACE AND TIME. PT IS CALM AND COOPERATIVE WITH STAFF. NO REPORTED BEHAVIORS. PT IS COMPLIANT WITH MEDS, VITALS AND ASSESSMENTS. NO ACUTE DISTRESS NOTED. PT CAN MAKE NEEDS KNOWN. PT IS INDEPENDENT WITH ADLS. PT IS QUIET BUT WILL ENGAGE WHEN PROMPTED TO. NO BEHAVIORS NOTED THIS SHIFT. PT IS SET TO DISCHARGE HOME THIS SHIFT. ALL BELONGINGS TOGETHER. PAPERWORK FAXED TO DR. CAREY OFFICE AND [facility]. WILL CONT PLAN OF CARE.
--- NOTE | 2019-10-11 13:20 | NUR ---
PT REQUESTED TRAMADOL 50 MG PER PRN ORDER. WILL CONT TO MONITOR.
--- NOTE | 2019-10-11 13:36 | NUR ---
PT D/C WITH FAMILY THIS SHIFT. NURSE AND FAMILY ASSSISTED PT INTO TRUCK. NURSE WENT OVER PAPER PACKET AND WHERE HER MEDS WENT. PERSONAL BELONGINGS SENT WITH PT AND INCENTIVE SPIROMETER. PT TOLERATED TRANSFER WELL. VERBALIZIED UNDERSTANDING WITH MEDS.
--- NOTE | 2019-10-15 15:12 | DS ---
PATIENT:AYANNA ALEX :45 MEDICAL RECORD: [id number] DISCHARGE SUMMARY ADMISSION DATE: 10/03/19 DISCHARGE DATE: 10/11/19 DATE OF ADMISSION: 10/03/2019 DATE OF DISCHARGE: 10/11/2019 IDENTIFYING DATA: The patient is a 73-year-old female who was admitted to the hospital on a voluntary basis. CHIEF COMPLAINT: Aggression. HISTORY OF PRESENT ILLNESS: The patient had been previously admitted here. The patient has a history of dementia. It was recommended that the patient be placed in a fpc that she had 24-hour supervision; however, the daughter wanted to provide 24-hour care in the home and that was done. The patient was combative with caregiver and so daughter brought mother back in because she was having conflicts. The patient did receive Haldol in the Emergency Room because she was very agitated and aggressive. HOSPITAL COURSE: The patient was admitted to the hospital and evaluated from both a medical, psychological, and social standpoint. She was found to have an advanced dementia and was treated with both mood stabilizing and memory enhancing medication. She did show improvement in her behaviors and was subsequently transitioned out of the hospital back to her home per her daughter's wishes and to receive 24/7 care. DISCHARGE DIAGNOSES: AXIS I: Major neurovascular cognitive disorder. AXIS II: None. AXIS III: Status post stroke, diabetes, hypothyroidism, asthma, chronic obstructive pulmonary disease, arthritis. AXIS IV: Moderate stressors. AXIS V: Global assessment of functioning is 30. PLAN: At the time of discharge, the patient was in good behavioral control and had no evidence of acute or direct dangerousness. She was placed in an environment where she could receive 24-hour a day supervision. The followup is to be with her primary care physician. Dictated By: Faiza Ng APN I have interviewed/examined the above patient and agree with these documented findings. TRANSINT:[id number] Voice Confirmation ID: [id number] DOCUMENT ID: [id number] Dictated By: FAIZA NG I have interviewed/examined the above patient and agree with these documented findings. DISCHARGE SUMMARY REPORT [id number] AYANNA ALEX PETER MD at 1512 CC: [id number] DICTATION DATE: 10/14/19 1202 WEEKEND RECEPTIONIST: 10/15/19 0032 DIS IN 10/11/19 [facility] [address] [facility] [address]
== END 2019-10-11 13:30 | disposition home health service (06) | DRG 884 ==
LOC: D.ER 20:13 → D.PSYCH 23:02
PROVIDERS: Family Medicine; ADMIT Psychiatry & Neurology Psychiatry; ATTEND Psychiatry & Neurology Psychiatry
DX: F01.51 Vascular dementia, unspecified severity, with behavioral disturbance (principal); F32.3 Major depressive disorder, single episode, severe with psychotic features; Z68.42 Body mass index [BMI] 45.0-49.9, adult; I10 Essential (primary) hypertension; E11.9 Type 2 diabetes mellitus without complications; J44.9 Chronic obstructive pulmonary disease, unspecified; J45.909 Unspecified asthma, uncomplicated; E78.5 Hyperlipidemia, unspecified; E03.9 Hypothyroidism, unspecified; K21.9 Gastro-esophageal reflux disease without esophagitis; E66.01 Morbid (severe) obesity due to excess calories; E55.9 Vitamin D deficiency, unspecified; K59.00 Constipation, unspecified; E83.42 Hypomagnesemia; H40.9 Unspecified glaucoma